=== PATIENT | male | born 1975 | race Caucasian/White ===

== ENCOUNTER → 2019-06-04 07:41 | Outpatient (CLI) | payer BC, SELFPAY ==
--- NOTE | 2019-06-04 | CA_ITS ---
APPROVED REPORT Exam: Exercise Treadmill Technologist: Max torres, Ht: 6 ft 3 in Wt: 195 lbs BSA: 2.17 m2 HR: 81 bpm BP: 124/81 mmHg Rhythm: NSR,NSSTTW ABNORMALITIES Indications: CP Medical History Medical History: HTN, Hyperlipidemia,, Diabetic ??? Noninsulin, Smoking Medications: , Allergies: NKA Cardiac Risk Factors: HTN, Hyperlipidemia, Diabetes (non-insulin), FHX of CAD, Smoking Stress Test Details Test: Peyman HR Resting HR: 86 bpm Max Heart Rate (APMHR): 174 bpm Max HR Achieved: 191 bpm Target HR (85% APMHR): 147 bpm % of APMHR: 109 Recovery HR: 140 bpm BP Resting BP: 124.0/81.0 mmHg Max BP: 174.0/88.0 mmHg Recovery BP: 182.0/82.0 mmHg ECG Resting ECG: NSR,NSSTTW ABNORMALITIES Medications Administered Albuterol ( mg at ) Clinical Reason for Termination: Dyspnea Exercise duration: 13:00 min Highest Stage Achieved: Exercise capacity: 14.8 METs Stress ECG Conclusion EXERCISED 13:00 ON PEYMAN PROTOCOL WITH MAX HEART RATE OF 191 BPM WHICH IS 129% OF PM FOR AGE. MAX BP 182/82. METS =14.8. TEST STOPPED DUE TO SOA AND LEG PAIN. NO CHEST PAIN. RARE PVC,COUPLET. < 1.5MM ST SEGMENT DEPRESSION. NEGATIVE TEST. Normal exercise stress test. Test Summary REST . . . . . . . Standing REST . . . . . . . Sitting REST 05:16 0.0 0.0 86 . 124/ 81 . . Stage 1 01:00 10.0 1.7 109 . . . . Stage 1 02:00 10.0 1.7 111 . 140/ 80 . . Stage 1 03:00 10.0 1.7 122 . 140/ 80 . . Stage 2 01:00 12.0 2.5 129 . . . . Stage 2 02:00 12.0 2.5 128 . . . . Stage 2 03:00 12.0 2.5 136 . 158/ 82 . . Stage 3 01:00 14.0 3.4 146 . . . . Stage 3 02:00 14.0 3.4 152 . . . . Stage 3 03:00 14.0 3.4 156 . 162/ 80 . . Stage 4 01:00 16.0 4.2 164 . . . . Stage 4 02:00 16.0 4.2 173 . . . . Stage 4 03:00 16.0 4.2 180 . 174/ 88 . . Stage 5 01:00 18.0 5.0 172 . . . Stop exercise at 13:00 RECOVERY 01:00 0.0 0.0 160 . . . . RECOVERY 02:00 0.0 0.0 146 . . . . RECOVERY 03:00 0.0 0.0 124 . . . . RECOVERY 04:00 0.0 0.0 121 . . . . RECOVERY 05:00 0.0 0.0 120 . 159/ 81 . . RECOVERY 06:00 0.0 0.0 124 . 159/ 81 . . RECOVERY 07:00 0.0 0.0 116 . 159/ 81 . . RECOVERY 07:39 0.0 0.0 115 . 147/ 78 . . Electronically signed by : Marc Rodrigues, 06/04/2019 14:41:34
--- NOTE | 2019-06-04 07:47 | CA_ITS ---
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 The EKG portion of the exercise stress echo is negative for ischemia, patient has excellent exercise capacity achieved 14.8 mets of workload on treadmill, there is no exercise-induced chest discomfort. The blood pressure response to exercise was adequate. 2. Resting echocardiogram showed normal left ventricular size and function, with exercise there is increase in contractility of all the segments of the myocardium with hyperdynamic left ventricular systolic response. There is no exercise-induced segmental wall motion abnormality to suggest underlying ischemic heart disease. 3. Normal stress echo
== END ==
PROVIDERS: PCP Internal Medicine; Visit Provider Physician Assistant
DX: R07.9 Chest pain, unspecified (principal); R94.31 Abnormal electrocardiogram [ECG] [EKG]
CPT/HCPCS: 93017; 93350

== ENCOUNTER 2020-06-15 16:05 | Emergency (ER) | payer BC, SELFPAY ==
[2020-06-15 16:34] VITALS: BP 136/82; PULSE 88; RESP 19; TEMP 36.8; O2SAT 96; BMI 25.0
--- NOTE | 2020-06-15 16:38 | HMH.EDUTC ---
[facility] Disposition Clinical Impression: Pain aggravated by coughing and deep breathing Disposition: Still a Patient Condition on Discharge: Good Referrals: Jyotsna Jean APRN [Primary Care Provider] - Time of Disposition: 17:00 Medical Decision Making - Peng Inquiry Pt receiving controlled substance: No Peng was queried for this patient: No Vital Signs: 06/15/20 16:34 06/15/20 17:00 Temperature 98.2 F 98.3 F Temperature Source Oral Oral Pulse Rate [Left] 88 107 H Respiratory Rate 19 17 Blood Pressure [Right Arm] 136/82 161/93 H Blood Pressure Mean [Right Arm] 100 115 Blood Pressure Source [Right Arm] Automatic Cuff Blood Pressure Position [Right Arm] Sitting 02 Sat by Pulse Oximetry 96 97 Oxygen Delivery Method Room Air - Lab Data Lab Results 06/15/20 17:15: WBC 8.5, RBC 5.45, Hgb 16.3, Hct 49.3, MCV 90.5, MCH 29.9, MCHC 33.1, RDW 13.0, Plt Count 212, MPV 8.5, Neut % (Auto) 68.3, Lymph % (Auto) 15.2, [place] % (Auto) 7.3, Eos % (Auto) 8.6, Baso % (Auto) 0.7, Neut # (Auto) 5.8, Lymph # (Auto) 1.3, [place] # (Auto) 0.6, Eos # (Auto) 0.7 H, Baso # (Auto) 0.1 06/15/20 17:15: Sodium 138, Potassium 4.0, Chloride 102, Carbon Dioxide 28, Anion Gap 12.0, BUN 18, Creatinine 1.10, Estimated Creat Clear 107, Estimated GFR 72, Est GFR ( Amer) 87, Glucose 114 H, Calcium 9.5 Result diagrams: 06/15/20 17:15 06/15/20 17:15 Orders (Tests/Meds): ED MEDICATIONS Discontinued Medications Generic Name Dose Route Start Last Admin Trade Name Freq PRN Reason Stop Dose Admin Iopamidol 75 ml 06/15/20 17:29 06/15/20 17:30 Iopamidol-370 (76%); 50ml Vial IV 06/15/20 17:30 75 ml ONCE ONE Administration Sodium Chloride 10 ml 06/15/20 17:29 06/15/20 17:30 Sodium Chloride 0.9% 10ml Syr (Rad Only) IV 06/15/20 17:30 10 ml ONCE ONE Administration ORDERS Category Date Time Status BNP [Brain Natriuretic Peptide] Stat Lab 06/15/20 17:15 Received Comprehensive Metabolic Panel Stat Lab 06/15/20 17:15 Received Lipase Stat Lab 06/15/20 17:15 Received Urinalysis and Microscopic Stat Lab 06/15/20 17:56 Ordered - Radiology Data #1 Image(s): Chest Image Reviewed: Yes I have reviewed radiologist's interpretation, Yes I reviewed the patient's radiology image w/the ED provider abnormal chest, small to med. right effusion and trace left-sided effusion Medical Decision Narrative: Spoke with Dr Sanderson ER physician about xray and he viewed the xray and agreed abnormal patient to be sent to the ED for CT of chest, testing and further evaluation Discussed with patient and he agreed with transfer Patient transferred to room 5 without complications and reactions [facility] HPI - General Stated complaint: pain when coughing.SOB Time Seen by Provider: 06/15/20 16:38 Mode of Arrival: Ambulatory Source of Information: Patient Limitations: No Limitations Description of Symptoms (Recalled from Triage Doc. by RN): LUQ pain when breathing deep, cough HEENT Symptoms (Recalled from RN notes): No Resp Symptoms (Recalled from RN notes): Yes Skin Symptoms (Recalled from RN notes): No MS Symptoms (Recalled from RN notes): No Functional Status (Recalled from RN notes): wnl - History of Present Illness Provider Complaint: Patient states that when he coughs, sneezes or takes a deep breath he has a sharp pain in his left upper lung area around the nipple area Denies productive cough, denies fever State that it has been happening on and off for about 2 weeks States that when he lays flat seems like pain is worse. Denies SOA but states that at times he has felt winded when he is up and moving alot and he is normally very active. Denies chest pain - Related Data Home Medications Medication Instructions Recorded Confirmed No Known Home Medications 05/26/19 06/16/19 Allergies Allergy/AdvReac Type Severity Reaction Status Date / Time No Known Allergies Allergy Verified 06/15/20 17:03 - Worker
--- NOTE | 2020-06-15 16:39 | XR_ITS ---
PROCEDURE: XR CHEST 2V CLINICAL HISTORY: chest discomfort COMPARISON: No exams were available for comparison FINDINGS: The cardiomediastinal silhouette and pulmonary vascularity are within normal limits. There is a small to medium-sized right pleural effusion. There is trace left-sided effusion. There is mild biapical pleural thickening. No lobar consolidation or collapse.. No acute bony abnormalities. IMPRESSION: Small to medium-sized right effusion and trace left-sided effusion Dictated by: Jonathan Huerta MD 06/15/2020 17:33 Jonathan Huerta MD in [place] 06/15/2020 17:33
[2020-06-15 17:00] VITALS: BP 161/93; PULSE 107; RESP 17; TEMP 36.8; O2SAT 97; BMI 25.0
--- NOTE | 2020-06-15 17:06 | CT_ITS ---
PROCEDURE: CT CHEST W CON CLINCAL INDICATION: right sided pleural effusion, new Chest pain with coughing and new right-sided pleural effusion COMPARISON: No exams were available for comparison TECHNIQUE: IV Contrast: 75ml Isovue 370 Axial images obtained with sagittal and coronal reformats. All CT scans at the facility use one or more dose reduction, viz: automated exposure control, ma/kV adjustment per patient size (including targeted exams where dose is matched to indication, i.e. head), or iterative reconstruction technique. FINDINGS: HEART AND MEDIASTINAL STRUCTURES: No mediastinal or hilar mass or adenopathy. No evidence central pulmonary embolus or aortic aneurysm or dissection. There is some mild thickening of the pericardium measuring up to 7 mm in thickness. LUNGS AND PLEURAL SPACES: There is a medium-sized right pleural effusion with compressive atelectasis of the right lower lobe. There is a small left pleural effusion with mild left basilar atelectasis. No suspicious nodules are evident. There is mild atelectatic changes in the left lower lobe. BONY STRUCTURES: No acute bony abnormalities apparent. UPPER ABDOMEN: Unremarkable. ADDITIONAL FINDINGS: No other significant abnormalities. IMPRESSION: Moderate-sized right pleural effusion and small left pleural effusion with moderate compressive atelectasis in the right lung base and mild left lower lobe atelectasis. Dictated by: Jonathan Huerta MD 06/15/2020 17:44 Jonathan Huerta MD in [place] 06/15/2020 17:44
[2020-06-15 17:29] LABS: Basophils # 0.1 K/mm3 (0-0.2); Basophils % 0.7 % (0.1-2.0); Eosinophils # 0.7 K/mm3 (0.0-0.4); Eosinophils % 8.6 % (0.1-12.0); Hematocrit 49.3 % (42.0-52.0); Hemoglobin 16.3 g/dL (14.1-18.0); Lymphocytes # 1.3 K/mm3 (0.7-4.5); Lymphocytes % 15.2 % (10-50); Mean Corpuscular HGB Conc 33.1 g/dL (31.8-35.4); Mean Corpuscular Hemoglobin 29.9 pg (27.0-31.2); Mean Corpuscular Volume 90.5 fl (80-94); Mean Platelet Volume 8.5 fl (7.4-10.4); Monocytes # 0.6 K/mm3 (0.1-1.0); Monocytes % 7.3 % (1.7-9.3); Neutrophils # 5.8 K/mm3 (1.8-7.8); Neutrophils % 68.3 % (37.0-80.0); Platelet Count 212 K/mm3 (142-424); Red Blood Count 5.45 M/mm3 (4.60-6.20); White Blood Count 8.5 K/mm3 (4.8-10.8)
[2020-06-15 17:47] LABS: Blood Urea Nitrogen 18 mg/dl (9-20); Calcium 9.5 mg/dl (8.4-10.2); Carbon Dioxide 28 mmol/L (22.0-30.0); Chloride 102 mmol/L (98-107); Creatinine Clearance Estimated 107 mL/min (50-200); Estimated Glomerular Filt Rate 72 ml/min (>60); GFR (African American) 87 ML/MIN (>60); Glucose 114 mg/dl (74-100); Sodium 138 mmol/L (136-145)
--- NOTE | 2020-06-15 17:49 | HMH.EDGENADL ---
ED Disposition Clinical Impression: Pain aggravated by coughing and deep breathing, Pleural effusion Disposition: Still a Patient Condition on Discharge: Good Additional Instructions: Return to the emergency department for worsening difficulty breathing chest pain or any other concerns within the next day. Follow-up with your primary care physician within the next few days. Follow-up within the next week with pulmonary doctor Jarvis with [facility] or followup at [facility], call Also followup with Cardiology for outpatient echocardiogram for workup as well. Prescriptions: Furosemide [Lasix 20mg tab] 20 mg PO DAILY 10 Days #10 tab Transmission Status: Received by [id number] Referrals: Jyotsna Jean APRN [Primary Care Provider] - Noel Gonzales MD [Physician] - Socrates Solorio MD [Staff Physician] - - Critical Care Critical Care Time: No Attestation: On 06/15/20, the high probability of a clinically significant, sudden or life threatening deterioration of the following system(s) required my full and direct attention, intervention and personal management. The time I documented below is in addition to time spent performing reported procedures but includes the following listed in this critical care notation. Medical Decision Making - Medical Records Medical records reviewed: Yes: I reviewed the patient's medical records. - Peng Inquiry Pt receiving controlled substance: No Vital Signs: 06/15/20 16:34 06/15/20 17:00 06/15/20 18:30 Temperature 98.2 F 98.3 F Temperature Source Oral Oral Pulse Rate [Left] 88 107 H 93 H Respiratory Rate 19 17 18 Blood Pressure [Right Arm] 136/82 161/93 H 142/87 H Blood Pressure Mean [Right Arm] 100 115 105 Blood Pressure Source [Right Arm] Automatic Cuff Automatic Cuff Blood Pressure Position [Right Arm] Sitting Sitting 02 Sat by Pulse Oximetry 96 97 97 Oxygen Delivery Method Room Air Room Air - Lab Data Lab Results 06/15/20 17:15: WBC 8.5, RBC 5.45, Hgb 16.3, Hct 49.3, MCV 90.5, MCH 29.9, MCHC 33.1, RDW 13.0, Plt Count 212, MPV 8.5, Neut % (Auto) 68.3, Lymph % (Auto) 15.2, [place] % (Auto) 7.3, Eos % (Auto) 8.6, Baso % (Auto) 0.7, Neut # (Auto) 5.8, Lymph # (Auto) 1.3, [place] # (Auto) 0.6, Eos # (Auto) 0.7 H, Baso # (Auto) 0.1 06/15/20 17:15: Sodium 138, Potassium 4.0, Chloride 102, Carbon Dioxide 28, Anion Gap 12.0, BUN 18, Creatinine 1.10, Estimated Creat Clear 107, Estimated GFR 72, Est GFR ( Amer) 87, Glucose 114 H, Calcium 9.5 06/15/20 17:15: Sodium 139, Potassium 4.0, Chloride 104, Carbon Dioxide 28, Anion Gap 11.0, BUN 18, Creatinine 1.10, Estimated Creat Clear 107, Estimated GFR 72, Est GFR ( Amer) 87, Glucose 112 H, Calcium 9.4, Total Bilirubin 0.6, AST 31, ALT 26, Alkaline Phosphatase 128 H, NT-Pro-B Natriuret Pep 68.7, Total Protein 8.6 H, Albumin 4.6, Globulin 4.0 H, Albumin/Globulin Ratio 1.2, Lipase 49 06/15/20 18:50: Urine Color Yellow, Urine Appearance Clear, Urine pH 5.5, Ur Specific [place] 1.025, Urine Protein Negative, Urine Glucose (UA) Negative, Urine Ketones Negative, Urine Blood Trace-l, Urine Nitrate Negative, Urine Bilirubin Negative, Urine Urobilinogen 0.2, Ur Leukocyte Esterase Negative, Urine RBC None, Urine WBC None, Ur Squamous Epith Cells None, Urine Bacteria None Result diagrams: 06/15/20 17:15 06/15/20 17:15 Orders (Tests/Meds): ED MEDICATIONS Discontinued Medications Generic Name Dose Route Start Last Admin Trade Name Freq PRN Reason Stop Dose Admin Furosemide 20 mg 06/15/20 18:10 06/15/20 18:41 Furosemide 20 Mg/2 Ml Vial IV 06/15/20 18:11 20 mg ONCE ONE Administration Iopamidol 75 ml 06/15/20 17:29 06/15/20 17:30 Iopamidol-370 (76%); 50ml Vial IV 06/15/20 17:30 75 ml ONCE ONE Administration Sodium Chloride 10 ml 06/15/20 17:29 12/02/20 17:30 Sodium Chloride 0.9% 10ml Syr (Rad Only) IV 06/15/20 17:30 10 ml ONCE ONE Admin
[2020-06-15 18:03] LABS: Chloride 104 mmol/L (98-107); Sodium 139 mmol/L (136-145)
[2020-06-15 18:05] LABS: Alanine Aminotransferase 26 U/L (12-78); Aspartate Amino Transferase 31 U/L (17-59); Blood Urea Nitrogen 18 mg/dl (9-20); Creatinine Clearance Estimated 107 mL/min (50-200); Estimated Glomerular Filt Rate 72 ml/min (>60); GFR (African American) 87 ML/MIN (>60)
[2020-06-15 18:06] LABS: Albumin Level 4.6 g/dl (3.5-5.0); Albumin/Globulin Ratio 1.2 (1.1-1.8); Alkaline Phosphatase 128 U/L (38-126); Bilirubin,Total 0.6 mg/dl (0.2-1.3); Calcium 9.4 mg/dl (8.4-10.2); Carbon Dioxide 28 mmol/L (22.0-30.0); Glucose 112 mg/dl (74-100); Lipase 49 U/L (23-300); Total Protein,Serum 8.6 g/dl (6.3-8.2)
[2020-06-15 18:15] LABS: NT Pro Brain Natriuretic Pep. 68.7 pg/mL (0-125)
--- NOTE | 2020-06-15 18:29 | PC.NURSE ---
pt states unable to urinate at this time, states he is thirsty, ER states okay to give pt PO fluids. Pt given a water. pt also given urinal to measure urine output after receiving IV Lasix as ordered per SEP and to collect specimen.
[2020-06-15 18:30] VITALS: BP 142/87; PULSE 93; RESP 18; O2SAT 97
[2020-06-15 19:00] VITALS: BP 143/92; PULSE 74; RESP 14; O2SAT 96
[2020-06-15 19:00] LABS: Microscopic, Urine URINE MICROSCOPIC (MICROSCOPIC)
[2020-06-15 19:01] LABS: Appearance,Urine CLEAR (Clear); Bilirubin,Urine Negative (Negative); Blood, Urine TRACE-L (Negative); Color,Urine YELLOW (Yellow); Glucose,Urine (UA) Negative (Negative); Ketones,Urine Negative (Negative); Leukocyte Esterase,Urine Negative (Negative); Nitrate,Urine Negative (Negative); PH,Urine 5.5 (5.0-8.5); Protein,Urine Negative (Negative); Specific Gravity, Urine 1.025 (1.005-1.030); Urobilinogen,Urine 0.2 EU/dl (0.2)
[2020-06-15 19:30] VITALS: BP 140/87; PULSE 85; RESP 14; O2SAT 96
[2020-06-15 19:41] VITALS: BP 140/87; PULSE 79; RESP 18; TEMP 36.6; O2SAT 98
== END 2020-06-15 19:45 | disposition still patient (30) ==
LOC: UTC 16:16 → ER 16:56
PROVIDERS: Emergency Provider Emergency Medicine; PCP Nurse Practitioner Family
DX: R07.9 Chest pain, unspecified (principal); J90 Pleural effusion, not elsewhere classified
CPT/HCPCS: 71046; 71260; 80048; 80053; 81001; 83690; 83880; 85025; 96374; 99283; Q9967

== ENCOUNTER → 2020-06-23 15:44 | Outpatient (CLI) | payer BC, SELFPAY ==
[2020-06-23 17:10] LABS: Coronavirus 19 IgG Antibody Negative (Negative); Coronavirus 19 IgM Antibody Negative (Negative)
== END ==
PROVIDERS: Visit Provider Nurse Practitioner Family
DX: J98.11 Atelectasis (principal)
CPT/HCPCS: 36415; 86328

== ENCOUNTER → 2020-06-30 10:00 | Outpatient (CLI) | payer BC, SELFPAY ==
--- NOTE | 2020-06-30 10:12 | CA_ITS ---
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 Truck Operator: Vandana Stanton, RT(R) Ht: 6 ft 3 in Wt: 192lbs BSA: 2.16 BP: 131/85 mmHg Indications: cp, pleural effusion on chest xray and CT 2D Dimensions LVOT 2.05 cm (M/F) 1.5-2.5 M-Mode Dimensions RVDd 2.40 cm (0.9-2.6) LA Diam 2.65 cm (1.9-4.0) LVDd 4.76 cm (3.5-5.7) Ao Diam 2.65 cm (2.0-3.7) LVDs 3.43 cm (3.5-5.7) IVSd 0.72 cm (0.6-1.1) PWd 0.86 cm (0.6-1.1) EF (Teich) 54.00% FS 27.90% EDV (Teich) 105.40 mL ESV (Teich) 48.50 mL LV Diastology E Decel Time 240.00 (160-240 msec) E/A Ratio 1.1 MED E' 8.20 (< 7 cm/sec) E'/MED E' Ratio 7.21 (>14) LAT E' 9.70 (<10 cm/sec) E/LAT E' Ratio 6.09 (>14) Mitral Valve MV E Max Espinoza. 59.00 (40-130 cm/s) MV A Velocity 54.00 (40-130 cm/s) E/A Ratio 1.10 MV Decel. Time 240.00 (160-240 ms) MV PHT 70.00 ms Left Ventricle Left atrium is normal size, left ventricle is normal size, visually estimated ejection fraction 55% with no regional wall motion abnormality. Diastolic parameters are within normal range. Right Ventricle Right atrium and right ventricle are normal size and contractility. Aortic Valve Aortic valve is grossly normal. There is no aortic stenosis or aortic insufficiency. Mitral Valve Mitral valve is normal, there is trace mitral regurgitation. Tricuspid Valve Tricuspid valve is grossly normal, there is trace tricuspid regurgitation. Pulmonic Valve Pulmonic valve is poorly visualized. Great Vessels Aortic root is normal size. Inferior vena cava is normal size with normal inspiratory collapse. Pericardium Trivial pericardial effusion noted There is left-sided pleural effusion seen, echodense organized material seen in the pleural effusion. Conclusion 1. Normal left ventricular size, preserved left ventricular systolic function, visually estimated ejection fraction 55% with no regional wall motion abnormality. Diastolic parameters are within normal range. 2. No echocardiographic evidence of ventricular interdependence or Doppler evidence of constrictive pericarditis seen. Inferior vena cava is normal size with normal inspiratory collapse. 3. Left-sided pleural effusion as described above is seen. 4. Trivial pericardial effusion of no hemodynamic significance. Electronically signed by : Marc Rodrigues, 06/30/2020 15:06:21
[2020-06-30 10:56] LABS: Erythrocyte Sedimentation Rate 9 mm/hr (0-15)
[2020-06-30 11:12] LABS: Chloride 102 mmol/L (98-107); Sodium 138 mmol/L (136-145)
[2020-06-30 11:13] LABS: Potassium 4.7 mmoL/L (3.5-5.1)
[2020-06-30 11:15] LABS: Alanine Aminotransferase 28 U/L (12-78); Alkaline Phosphatase 124 U/L (38-126); Anion Gap 12.7 mEq/L (5-15); Aspartate Amino Transferase 28 U/L (17-59); Bilirubin,Direct 0.1 mg/dl (0.0-0.4); Bilirubin,Indirect 0.6 mg/dL (0.0-0.9); Bilirubin,Total 0.7 mg/dl (0.2-1.3); Bilirubin,Unconjugated 0.6 mg/dL (0.0-1.1); Blood Urea Nitrogen 12 mg/dl (9-20); Carbon Dioxide 28 mmol/L (22.0-30.0); Estimated Glomerular Filt Rate 80 ml/min (>60); GFR (African American) 97 ML/MIN (>60)
[2020-06-30 11:16] LABS: Albumin Level 4.1 g/dl (3.5-5.0); Calcium 9.5 mg/dl (8.4-10.2); Glucose 105 mg/dl (74-100); Total Protein,Serum 7.9 g/dl (6.3-8.2)
[2020-06-30 11:24] LABS: NT Pro Brain Natriuretic Pep. 188 pg/mL (0-125)
[2020-07-04 16:46] LABS: Uric Acid 6.8 mg/dl (3.5-8.5)
== END ==
PROVIDERS: Family Medicine; Visit Provider Internal Medicine Cardiovascular Disease
DX: R07.9 Chest pain, unspecified (principal); R06.01 Orthopnea; J90 Pleural effusion, not elsewhere classified
CPT/HCPCS: 36415; 80048; 80076; 83880; 84550; 85651; 93306

== ENCOUNTER → 2020-07-01 15:22 | Outpatient (CLI) | payer BC, SELFPAY ==
--- NOTE | 2020-07-01 15:50 | XR_ITS ---
PROCEDURE: XR CHEST 2V CLINICAL HISTORY: PLEURAL EFFUSION COMPARISON: CR XR CHEST 2V from 06/15/[address] CHEST W CON from 06/15/2020 FINDINGS: The cardiomediastinal silhouette and pulmonary vascularity are within normal limits. There are small bilateral pleural effusions. The right pleural effusion has decreased in size. Left pleural effusion has developed since the previous exam. Upper lobes are clear No acute bony abnormalities. IMPRESSION: Small bilateral pleural effusions Dictated by: Jonathan Huerta MD 07/01/2020 16:32 Jonathan Huerta MD in [place] 07/01/2020 16:32
[2020-07-01 16:13] LABS: Basophils # 0.1 K/mm3 (0-0.2); Basophils % 0.9 % (0.1-2.0); Eosinophils # 0.7 K/mm3 (0.0-0.4); Hematocrit 48.6 % (42.0-52.0); Hemoglobin 16.2 g/dL (14.1-18.0); Lymphocytes # 1.2 K/mm3 (0.7-4.5); Mean Corpuscular HGB Conc 33.3 g/dL (31.8-35.4); Mean Corpuscular Hemoglobin 30.2 pg (27.0-31.2); Mean Corpuscular Volume 90.7 fl (80-94); Mean Platelet Volume 7.8 fl (7.4-10.4); Monocytes # 0.5 K/mm3 (0.1-1.0); Monocytes % 7.4 % (1.7-9.3); Neutrophils # 4.2 K/mm3 (1.8-7.8); Neutrophils % 62.7 % (37.0-80.0); Platelet Count 299 K/mm3 (142-424); Red Blood Count 5.36 M/mm3 (4.60-6.20); Red Cell Distribution Width 13.1 % (11.5-17.5); White Blood Count 6.7 K/mm3 (4.8-10.8)
[2020-07-01 17:01] LABS: C-Reactive Protein 30.6 mg/L (0-4)
[2020-07-05 10:27] LABS: Anti-Cyclic Citrullinated Pept 8 units (0-19)
[2020-07-05 20:10] LABS: Antinuclear Antibodies, IFA Negative (.); Strongyloides IgG Antibody Negative (Negative)
[2020-07-07 22:13] LABS: Aspergillus flavus Negative (Neg:<1:1); Aspergillus fumigatus Negative (Neg:<1:1); Aspergillus niger Negative (Neg:<1:1)
[2020-07-08 04:18] LABS: Blastomyces Antibody Negative (Neg:<1:1)
== END ==
PROVIDERS: Visit Provider Internal Medicine Pulmonary Disease
DX: J90 Pleural effusion, not elsewhere classified (principal); J92.9 Pleural plaque without asbestos; J84.9 Interstitial pulmonary disease, unspecified; J45.909 Unspecified asthma, uncomplicated; J84.10 Pulmonary fibrosis, unspecified; D72.19 Other eosinophilia; R07.81 Pleurodynia; R06.00 Dyspnea, unspecified
CPT/HCPCS: 36415; 71046; 85025; 86038; 86140; 86200; 86235; 86606; 86612; 86682; 86698

== ENCOUNTER → 2020-07-26 09:38 | Outpatient (CLI) | payer BC, SELFPAY ==
--- NOTE | 2020-07-26 | XR_ITS ---
PROCEDURE: XR CHEST 2V CLINICAL HISTORY: Follow-up thoracentesis COMPARISON: CR XR CHEST 2V from 06/15/2020 CR XR CHEST 2V from 07/01/2020 FINDINGS: The cardiomediastinal silhouette and pulmonary vascularity are within normal limits. Status post left-sided thoracentesis with decrease in size of left pleural effusion. There is some minimal blunting of the left CP angle. There is no evidence of pneumothorax. A longitudinal density noted along the left lateral hemithorax and may be related to some atelectatic change or the major fissure. Follow-up chest x-ray will be performed in 4 hours for confirmation. Small right-sided pleural effusion is present. No acute bony abnormalities. IMPRESSION: Status post left-sided thoracentesis without definite pneumothorax. Dictated by: Jonathan Huerta MD 07/26/2020 11:50 Jonathan Huerta MD in [place] 07/26/2020 11:50
--- NOTE | 2020-07-26 09:39 | US_ITS ---
PROCEDURE: US THORACENTESIS CLINICAL INDICATION: Left Pleural Effusion COMPARISON: No exams were available for comparison TECHNIQUE: Informed consent was obtain prior to procedure. After appropriate Time out, under aseptic conditions and local anesthesia with 1% buffered lidocaine using sonographic guidance a 6 Taj[place] Mtph-P-[id number] catheter was inserted into the posterior hemithorax on the left within the pleural space. Approximately 600ml of Serous fluid was drained. Sample of the fluid was sent to the lab for analysis. The patient tolerated the procedure well and left the radiology suite in stable condition. FINDINGS: Chest x-rays performed immediately and at 4 hours show no evidence of pneumothorax. IMPRESSION: Successful sonographic guided thoracentesis without complication. Dictated by: Jonathan Huerta MD 07/26/2020 20:17 Jonathan Huerta MD in [place] 07/26/2020 20:17
[2020-07-26 10:39] VITALS: BMI 24.3
[2020-07-26 10:48] VITALS: BP 136/91; PULSE 91; RESP 18; TEMP 36.7; O2SAT 100
--- NOTE | 2020-07-26 15:30 | XR_ITS ---
PROCEDURE: XR CHEST 2V CLINICAL HISTORY: Follow-up thoracentesis COMPARISON: CR XR CHEST 2V from 06/15/[address] CHEST W CON from 06/15/2020 CR XR CHEST 2V from 07/01/2020 DX XR CHEST 2V from 07/26/2020 FINDINGS: Status post left-sided thoracentesis with marked decrease in size in left effusion. No evidence of pneumothorax. There is mild left apical pleural thickening. Ill-defined longitudinal area of increased density once again noted in the lateral hemithorax on the left and may be due to major fissure. There is a small right pleural effusion. Atelectatic changes are present in the right lung base. IMPRESSION: Follow-up thoracentesis shows no evidence of reaccumulation of fluid or pneumothorax. Small right effusion with right basilar atelectasis is noted Dictated by: Jonathan Huerta MD 07/26/2020 17:47 Jonathan Huerta MD in [place] 07/26/2020 17:47
[2020-07-26 16:00] LABS: Alanine Aminotransferase 16 U/L (12-78); Albumin Level 3.8 g/dl (3.5-5.0); Albumin/Globulin Ratio 1.1 (1.1-1.8); Alkaline Phosphatase 84 U/L (38-126); Anion Gap 9.1 mEq/L (5-15); Aspartate Amino Transferase 25 U/L (17-59); Bilirubin,Total 0.8 mg/dl (0.2-1.3); Blood Urea Nitrogen 12 mg/dl (9-20); Carbon Dioxide 31 mmol/L (22.0-30.0); Chloride 100 mmol/L (98-107); Creatinine Clearance Estimated 104 mL/min (50-200); Estimated Glomerular Filt Rate 72 ml/min (>60); GFR (African American) 87 ML/MIN (>60); Globulin 3.6 g/dL (1.3-3.2); Glucose 106 mg/dl (74-100); Lactate Dehydrogenase 147 U/L (313-618); Potassium 4.1 mmoL/L (3.5-5.1); Sodium 136 mmol/L (136-145); Total Protein,Serum 7.4 g/dl (6.3-8.2)
[2020-07-26 16:05] LABS: C-Reactive Protein 56.2 mg/L (0-4)
[2020-07-27 14:49] LABS: Albumin, Body Fluid 2.6 g/dL (Not Estab.); LD, Body Fluid 346 IU/L (.); Protein, Body Fluid 4.8 g/dL (.)
[2020-07-29 06:14] LABS: pH, Body Fluid 7.5 (Not Estab.)
== END ==
PROVIDERS: PCP Nurse Practitioner Family; Visit Provider Internal Medicine Pulmonary Disease
DX: R06.00 Dyspnea, unspecified (principal); J90 Pleural effusion, not elsewhere classified
CPT/HCPCS: 32555; 36415; 71046; 80053; 82042; 83615; 83986; 84155; 86140

== ENCOUNTER → 2020-08-05 15:51 | Outpatient (CLI) | payer BC, SELFPAY ==
[2020-08-05 17:31] LABS: Uric Acid 5.3 mg/dl (3.5-8.5)
[2020-08-05 17:36] LABS: C-Reactive Protein 66.3 mg/L (0-4)
[2020-08-05 17:44] LABS: Erythrocyte Sedimentation Rate 18 mm/hr (0-15)
[2020-08-07 14:07] LABS: RA Latex Turbid. 10.2 IU/mL (0.0-13.9)
[2020-08-08 14:10] LABS: Smith/RNP Antibodies <0.2 AI (0.0-0.9)
[2020-08-08 14:46] LABS: Anti-DNA (DS) Ab Qn 1 IU/mL (0-9)
[2020-08-10 15:41] LABS: Antinuclear Antibodies, IFA Negative (.)
== END ==
PROVIDERS: Visit Provider Internal Medicine Pulmonary Disease
DX: R06.00 Dyspnea, unspecified (principal); J84.9 Interstitial pulmonary disease, unspecified
CPT/HCPCS: 36415; 84550; 85651; 86038; 86140; 86225; 86235; 86431

== ENCOUNTER → 2020-08-09 15:49 | Outpatient (CLI) | payer BC, SELFPAY ==
[2020-08-13 17:24] LABS: QuantiFERON-TB Gold Plus Negative (Negative)
== END ==
PROVIDERS: Visit Provider Internal Medicine Pulmonary Disease
DX: J84.9 Interstitial pulmonary disease, unspecified (principal)
CPT/HCPCS: 36415; 86480